=== PATIENT | female | born 1970 | race Caucasian/White ===

== ENCOUNTER → 2018-09-29 20:57 | Outpatient (CLI) | payer BC, SELFPAY | PROVIDERS: Family Provider Nurse Practitioner; PCP Nurse Practitioner; Referring Provider Nurse Practitioner; Visit Provider Nurse Practitioner | DX: E03.9 Hypothyroidism, unspecified (principal) | CPT/HCPCS: 84443 ==

== ENCOUNTER → 2020-10-29 | Outpatient (CLI) | payer BC, SELFPAY ==
[2019-06-22 11:57] VITALS: BMI 30.9
[2020-10-29 23:42] LABS: Thyroid Stim Hormone (TSH) 0.39 uIU/mL (0.358-3.74)
== END | disposition home or self-care (01) ==
PROVIDERS: PCP Nurse Practitioner; Referring Provider Nurse Practitioner; Visit Provider Nurse Practitioner
DX: E03.9 Hypothyroidism, unspecified (principal)
CPT/HCPCS: 84443

== ENCOUNTER 2021-08-28 22:15 | Outpatient (CLI) | payer BC, SELFPAY ==
[2021-08-28 22:44] LABS: AST(SGOT) 13 U/L (15-37); Alanine Aminotransfer ALT/SGPT 19 U/L (13-56); Alkaline Phosphatase 82 U/L (45-117); Anion Gap 4 (5-15); BUN 5 mg/dL (7-18); BUN/Creat Ratio 7.9 RATIO (10-20); Calcium,Total 9.4 mg/dL (8.5-10.1); Chloride 103 mmol/L (98-107); Creatinine, Serum 0.63 mg/dL (0.55-1.02); EST Glomerular Filtration Rate 105 mL/min (>60); Est Glom Filt Rate - Afr Amer 127 mL/min (>60); Globulin 3.9 g/dL (2.2-4.2); Glucose 91 mg/dL (74-106); Potassium 3.7 mmol/L (3.5-5.1); Protein, Total 7.9 g/dL (6.4-8.2); Sodium Level 138 mmol/L (136-145)
== END 2021-08-28 23:59 | disposition home or self-care (01) ==
PROVIDERS: PCP Nurse Practitioner; Visit Provider Nurse Practitioner
DX: E03.9 Hypothyroidism, unspecified (principal)
CPT/HCPCS: 80053; 84443

== ENCOUNTER → 2022-09-01 | Outpatient (CLI) | payer BC, SELFPAY ==
[2022-09-01 22:43] LABS: Thyroid Stim Hormone (TSH) 0.29 uIU/mL (0.358-3.74)
== END | disposition home or self-care (01) ==
PROVIDERS: PCP Nurse Practitioner; Visit Provider Nurse Practitioner
DX: E03.9 Hypothyroidism, unspecified (principal)
CPT/HCPCS: 84443

== ENCOUNTER → 2023-06-23 | Outpatient (CLI) | payer BC, SELFPAY ==
[2023-06-23 20:24] LABS: Thyroid Stim Hormone (TSH) 1.83 uIU/mL (0.358-3.74)
== END | disposition home or self-care (01) ==
PROVIDERS: PCP Nurse Practitioner; Visit Provider Nurse Practitioner
DX: E03.9 Hypothyroidism, unspecified (principal)
CPT/HCPCS: 84443

== ENCOUNTER → 2023-10-05 | Outpatient (CLI) | payer BC, SELFPAY ==
[2023-10-05 23:26] LABS: Thyroid Stim Hormone (TSH) 1.55 uIU/mL (0.358-3.74)
== END | disposition home or self-care (01) ==
PROVIDERS: PCP Nurse Practitioner; Visit Provider Nurse Practitioner
DX: E03.9 Hypothyroidism, unspecified (principal)
CPT/HCPCS: 84443

== ENCOUNTER → 2023-10-22 | Outpatient (CLI) | payer BC, SELFPAY ==
[2023-10-22 22:16] LABS: ALB/GLOB Ratio 1.1 RATIO (0.9-2.4); AST(SGOT) 20 U/L (15-37); Alanine Aminotransfer ALT/SGPT 26 U/L (13-56); Albumin, Serum 3.9 g/dL (3.2-5.0); Alkaline Phosphatase 68 U/L (45-117); Anion Gap 0 (5-15); BUN 5 mg/dL (7-18); BUN/Creat Ratio 7.5 RATIO (10-20); Calcium,Total 9.1 mg/dL (8.5-10.1); Chloride 106 mmol/L (98-107); Creatinine, Serum 0.67 mg/dL (0.55-1.02); EST Glomerular Filtration Rate 97 mL/min (>60); Est Glom Filt Rate - Afr Amer 118 mL/min (>60); Globulin 3.5 g/dL (2.2-4.2); Glucose 85 mg/dL (74-106); Potassium 3.6 mmol/L (3.5-5.1); Protein, Total 7.4 g/dL (6.4-8.2); Sodium Level 138 mmol/L (136-145)
== END | disposition home or self-care (01) ==
PROVIDERS: PCP Nurse Practitioner; Referring Provider Nurse Practitioner; Visit Provider Nurse Practitioner
DX: B35.3 Tinea pedis (principal); B35.4 Tinea corporis
CPT/HCPCS: 80053

== ENCOUNTER → 2024-06-01 | Outpatient (CLI) | payer BC, SELFPAY ==
[2024-06-01 22:28] LABS: Absolute Lymphocyte Count 2.56 X10^3/uL (0.83-4.51); Absolute Neutrophil Count 5.1 X10^3/uL (2.0-7.7); Basophil# 0.04 X10^3/uL; Basophil% 0.5 % (0-1); Eosinophils% 3.4 % (0-5); Hematocrit 41.2 % (37-47); Hemoglobin 14.1 g/dL (12.0-15.0); Lymphocyte # 2.56 X10^3/ul (0.83-4.51); Lymphocyte % 28.9 % (19-41); Mean Corp Hgb Conc 34.2 g/dL (32-36); Mean Corpuscular Hgb 30.5 pg (27.0-32.0); Mean Platelet Vol. 11.4 fl (6.2-12.0); Monocyte# 0.81 X10^3/uL; Monocyte% 9.1 % (0-10); NRBC Flagged by Analyzer 0 % (0-5); Neutrophil # 5.12 X10^3/uL (2.7-7.7); Neutrophil % 57.8 % (47-70); Platelet Count 316 K/mm3 (150-450); RBC Distribution Width SD 45.5 fl (35.1-43.9); Red Blood Count 4.63 M/mm3 (4.2-5.4); White Blood Count 8.9 K/mm3 (4.4-11.0)
[2024-06-01 22:47] LABS: ALB/GLOB Ratio 1.1 RATIO (0.9-2.4); AST(SGOT) 15 U/L (15-37); Alanine Aminotransfer ALT/SGPT 24 U/L (13-56); Albumin, Serum 3.7 g/dL (3.2-5.0); Alkaline Phosphatase 79 U/L (45-117); Amylase 50 U/L (25-115); Anion Gap 4 (5-15); BUN 7 mg/dL (7-18); BUN/Creat Ratio 11.6 RATIO (10-20); Chloride 104 mmol/L (98-107); Cholesterol 225 mg/dL (200); EST Glomerular Filtration Rate 110 mL/min (>60); Est Glom Filt Rate - Afr Amer 133 mL/min (>60); Globulin 3.4 g/dL (2.2-4.2); Glucose 92 mg/dL (74-106); High Density Lipoprotein 75 mg/dL; Lipase 29 U/L (13-75); Potassium 3.7 mmol/L (3.5-5.1); Protein, Total 7.1 g/dL (6.4-8.2); Sodium Level 138 mmol/L (136-145); Triglycerides 119 mg/dL; Very Low Density Lipoprotein 24 mg/dL (5-40)
[2024-06-01 22:57] LABS: Hemoglobin A1c 5.1 % (3.8-5.6)
[2024-06-04 16:08] LABS: Vitamin D 1,25-Dihydroxy 41.1 pg/mL (24.8-81.5)
== END | disposition home or self-care (01) ==
PROVIDERS: PCP Nurse Practitioner; Referring Provider Nurse Practitioner; Visit Provider Nurse Practitioner
DX: K52.9 Noninfective gastroenteritis and colitis, unspecified (principal); R10.9 Unspecified abdominal pain; R53.82 Chronic fatigue, unspecified; R63.5 Abnormal weight gain; L65.9 Nonscarring hair loss, unspecified
CPT/HCPCS: 80053; 80061; 82150; 82533; 82652; 83036; 83690; 84443; 85025

== ENCOUNTER → 2024-11-03 | Outpatient (CLI) | payer BC, SELFPAY | END | disposition home or self-care (01) | PROVIDERS: PCP Nurse Practitioner; Visit Provider Nurse Practitioner | DX: E03.9 Hypothyroidism, unspecified (principal); K52.9 Noninfective gastroenteritis and colitis, unspecified; R10.84 Generalized abdominal pain | CPT/HCPCS: 84443 ==